=== PATIENT | male | born 1990 | race Two or more races ===

== ENCOUNTER 2019-09-29 03:29 | Emergency (ER) | payer SELFPAY ==
[~2019-09-29] VITALS: Ht 175.3 cm; Wt 66.0 kg
[2019-09-29] MEDS ORDERED: HYDROCODONE/ACETAMINOPHEN 10/325MG TABLET PO ONE (06:00)
[2019-09-29 06:02] VITALS: BP 115/71
== END 2019-09-29 06:10 | disposition home or self-care (01) ==
LOC: ER 03:29
DX: S02.2XXA Fracture of nasal bones, initial encounter for closed fracture (principal); R07.89 Other chest pain; G89.11 Acute pain due to trauma; Y04.2XXA Assault by strike against or bumped into by another person, initial encounter; Y93.89 Activity, other specified; Y92.488 Other paved roadways as the place of occurrence of the external cause
CPT/HCPCS: 70486; 71045; 99285